=== PATIENT | male | born 1960 | race Caucasian/White ===

== ENCOUNTER 2020-01-08 06:45 | Day surgery (SDC) | payer OTHER | END 2020-01-08 12:00 | disposition home or self-care (01) | LOC: AMB-ENDOS 06:45 → ADM 13:30 | DX: K62.89 Other specified diseases of anus and rectum (principal); K57.30 Diverticulosis of large intestine without perforation or abscess without bleeding; Z93.3 Colostomy status; Z12.11 Encounter for screening for malignant neoplasm of colon ==

== ENCOUNTER 2023-06-30 06:00 | Day surgery (SDC) | payer OTHER | END 2023-06-30 14:10 | disposition home or self-care (01) | LOC: AMB-ENDOS 06:00 | PROVIDERS: ATTEND Colon & Rectal Surgery | DX: K57.30 Diverticulosis of large intestine without perforation or abscess without bleeding (principal); Z93.3 Colostomy status; R19.4 Change in bowel habit; Z12.11 Encounter for screening for malignant neoplasm of colon; Z20.822 Contact with and (suspected) exposure to COVID-19 ==